=== PATIENT | male | born 1955 | race Caucasian/White ===

== ENCOUNTER 2018-09-08 13:23 | Emergency (ER) | payer OTHER ==
[2018-09-08 13:30] VITALS: BP 128/71; TEMP 97.3; BMI 29.5
== END 2018-09-08 15:12 | disposition left against medical advice (07) ==
LOC: ED 13:23
DX: R10.9 Unspecified abdominal pain (principal); R11.2 Nausea with vomiting, unspecified; R19.7 Diarrhea, unspecified; F17.210 Nicotine dependence, cigarettes, uncomplicated
CPT/HCPCS: 99281

== ENCOUNTER 2018-09-10 21:00 | Outpatient (CLI) | payer OTHER | END 2018-09-10 21:17 | disposition short-term general hospital (02) | LOC: AMBL 21:00 | PROVIDERS: ATTEND Internal Medicine Geriatric Medicine | DX: R10.30 Lower abdominal pain, unspecified (principal); R06.02 Shortness of breath; M54.9 Dorsalgia, unspecified; I49.3 Ventricular premature depolarization ==

== ENCOUNTER 2018-11-02 18:30 | Outpatient (CLI) | payer OTHER | END 2018-11-02 18:47 | disposition short-term general hospital (02) | LOC: AMBL 18:30 | PROVIDERS: ATTEND Emergency Medicine | DX: R06.02 Shortness of breath (principal); R05 Cough; R10.9 Unspecified abdominal pain ==